=== PATIENT | male | born 1965 | race Caucasian/White ===

== ENCOUNTER 2018-03-21 14:11 | Inpatient (IN) | payer BC ==
[~2018-03-21] VITALS: Ht 188 cm; Wt 117.9 kg
[~2018-03-21 14:11] MED LIST: ASPIRIN325 PO; ASTAXANTHIN4 MG PO; B-100 COMPLEX100 MG PO; CALCIUM 600 +1 EAC1 PO; CAYENNE450 MG PO; FISH OIL 1,2001 EAC4 PO; GARLIC1 EACH PO; GLUCOSAMINE &1 EAC1 PO; GREEN TEA-70500 MG PO; L-LYSINE500 M1 PO; MACA ROOT; MAGNESIUM400 MG PO; MOBIC15 MG PO; MULTI-VITAMIN1 EAC5 PO; OXYCODONE HCL 55 MG PO; VITAMIN C + RO500 MG PO; VITAMIN D35000 UNI1 PO; XARELTO10 MG PO; ZOFRAN ODT4 MG PO; [UNRECOGNIZED DRUG - OTHER] PO; [UNRECOGNIZED DRUG - OTHER] PO
[2018-03-21 14:17] VITALS: BP 145/53
[2018-03-21] MEDS ORDERED: BACTRIM DS TAB1 EACH PO (14:21)
[2018-03-21 15:02] LABS: HEMOGLOBIN 14.1 gm/dL (14.0-18.0); MCH 31.6 pg (26.0-34.0); MCHC 34.4 g/dL (28.0-37.0); MCV 91.9 fL (80.0-100.0); MPV 9.2 fl. (7.2-11.1); NUCLEATED RBCS 0 /100WBC; PLATELET COUNT* 170 thou/uL (150-400); RBC 4.46 mil/uL (4.50-6.00); RDW-CV 13.2 % (10.5-14.5); WBC 9.3 thou/uL (4.0-11.0)
[2018-03-21 15:10] LABS: CALCIUM 8.4 mg/dL (8.5-10.1); CREATININE 1.3 mg/dL (0.6-1.3); POTASSIUM 3.6 mmol/L (3.5-5.1)
[2018-03-21 15:15] LABS: ABSOLUTE LYMPHOCYTES 0.3 thou/uL (0.8-5.3); ABSOLUTE MONOCYTES 0.3 thou/uL (0.0-1.2); ABSOLUTE NEUTROPHILS 8.7 thou/uL (1.6-8.1); ALBUMIN 3.5 g/dL (3.4-5.0); PLATELET ESTIMATE ADEQUATE; TOTAL BILIRUBIN 0.9 mg/dL (<0.1-1.0); TOTAL PROTEIN 7.4 g/dL (6.4-8.2); URIC ACID* 3.6 mg/dL (2.6-7.2)
[2018-03-21 16:13] LABS: ESR (SEDRATE) 53 mm/hr (0-20)
[2018-03-21 16:22] VITALS: BP 126/66
[2018-03-21 16:45] VITALS: BP 134/67
[2018-03-21] MEDS ORDERED: FLOMAX0.4 MG PO (17:42)
[2018-03-21] MEDS ORDERED: MOBIC15 MG PO (17:43)
--- NOTE | 2018-03-21 17:58 | NUR ---
PT ADMITTED WITH CELLULITIS OF THE LEFT ARM AND AN OPEN WOUND ON THE LEFT ELBOW. NO DRESSING OVER WOUND AND PICTURES TAKEN. PT STATED PAIN AND REDNESS STARTED AROUND 4-7 DAYS AGO. PT PRIOR HAD BEEN ON BACTRIM FOR THE CELLULITIS BUT IT DID NOT HELP. PT IS ON RA. IV IN THE RIGHT FOREARM WITH VANC RUNNING AND NS AT 90ML/HR ORDERED. CONSULT FOR INFECTIOUS DISEASE MADE AND LEFT MESSAGE. PT IS UP WITH ASSIST. PT HAS AN MRSA SWAB ORDERED AND PENDING RESULTS.
--- NOTE | 2018-03-21 18:04 | NUR ---
NURSING DOCUMENTATION BY KIMMIE Jackson RN REVIEWED
[2018-03-21 20:00] VITALS: BP 131/47
--- NOTE | 2018-03-22 04:41 | NUR ---
PATIENT HAS REMAINED ALERT AND ORIENTED X 4 THROUGHOUT THE SHIFT AND RESTING AT INTERVALS ON HOURLY ROUNDS. IVF'S AND ANTIBIOTICS PER ORDERS. LEFT ELBOW UNCHANGED WITH REDNESS AND EDEMA. PATIENT REPORTS CONTINUED PAIN BUT DECLINES PAIN MEDICATIONS. LOW-GRADE TEMP. INFECTIOUS DISEASE TO SEE THIS AM. CONTINUE TO MONITOR.
[2018-03-22 05:08] LABS: HEMATOCRIT 37.7 % (42.0-52.0); HEMOGLOBIN 12.8 gm/dL (14.0-18.0); MCH 31.5 pg (26.0-34.0); MCHC 33.9 g/dL (28.0-37.0); MCV 93.1 fL (80.0-100.0); MPV 10.1 fl. (7.2-11.1); RBC 4.05 mil/uL (4.50-6.00); RDW-CV 13.3 % (10.5-14.5); WBC 8.8 thou/uL (4.0-11.0)
[2018-03-22 05:13] LABS: CALCIUM 7.8 mg/dL (8.5-10.1); CREATININE 1.2 mg/dL (0.6-1.3); MAGNESIUM 1.8 mg/dL (1.8-2.4); POTASSIUM 4.1 mmol/L (3.5-5.1)
--- NOTE | 2018-03-22 06:47 | NUR ---
0525 PATIENT REQUESTING THAT ORTHO BEING CONSULTED TO BE DR. BROWN.
--- NOTE | 2018-03-22 07:04 | NUR ---
DR. BROWN UNABLE TO SEE INPATIENT CONSULTS AT THIS TIME. WILL NOTIFY PATIENT AND PLAN FOR ANOTHER CHOICE.
--- NOTE | 2018-03-22 07:25 | NUR ---
PATIENT AGREEABLE TO CONSULT WITH DR. MARTINEZ. CONSULT CALLED TO ANSWERING SERVICE.
[2018-03-22 08:50] VITALS: BP 134/74
--- NOTE | 2018-03-22 11:36 | NUR ---
SPOKE WITH DR. BROWN THIS AM REGARDING ORTHO CONSULT AND PATIENTS REQUEST TO SEE A DIFFERENT ORTHO GROUP (PT DOES NOT WANT TO SEE [facility]). DR. BROWN IS NOT IN TOWN THIS WEEKEND TO DO CONSULT. SPOKE WITH DR. HU AND DR. HU SAID THE CONSULT CAN BE DONE FRIDAY UNLESS SOMETHING URGENT ARISES. PATIENT WILL GO FOR STAT MRI TODAY OF LEFT ELBOW.
[2018-03-22 11:52] VITALS: BP 127/76
--- NOTE | 2018-03-22 13:36 | NUR ---
PATIENT'S REQUESTING TRANSFER TO [facility] IF SURGICAL INTERVENTION IS REQUIRED. AWAITING MRI RESULTS.
--- NOTE | 2018-03-22 13:43 | NUR ---
DR. HU MADE AWARE OF WIFES REQUEST TO TRANSFER IF SURGICAL INTERVENTION NEEDED.
[2018-03-22 15:34] VITALS: BP 133/77
--- NOTE | 2018-03-22 16:02 | NUR ---
MRI RESULTS CALLED TO DR HU. DR. HU STATES PATIENT NEEDS ORTHO CONSULT. PATIENT AND SPOUSE WISH TO TRANSFER. AWAITING APPROVAL FOR TRANSFER TO [facility] PER PATIENT REQUEST.
--- NOTE | 2018-03-22 16:42 | NUR ---
PATIENT REMAINS ALERT AND ORIENTED. TOLERATING MEALS. IV ABX INFUSED ORDERED. MRI OF LEFT ELBOW. NEEDS SURGICAL INTERVENTION-AWAITING TRANSFER TO DIFF FACILITY DUE TO ORTHO PREFERENCE. LEFT ARM ELEVATED ON PILLOW, INCREASE IN PAIN TODAY AFTER MRI-MORPHINE AND NORCO ADMINISTERED. UP AD YESSENIA. FAMILY AT BEDSIDE. CALL LIGHT WITHIN REACH. WILL CONTINUE TO MONITOR.
--- NOTE | 2018-03-22 19:03 | NUR ---
PENDING SALE TO [facility] PATIENT IS OUT OF NETWORK. PER TRANSFER TEAM [facility] SHOULD BE IN NETWORK (EXCEPT [facility]). OFFERED PATIENT [facility] WHERE [facility] JESSICA IS CAN RUNNER, (PT SEES [facility] OUTPATIENT) OR [facility] WHERE VEENA IS CAN RUNNER. PATIENT CHOOSES [facility]. AWAITING APPROVAL FOR TRANSFER.
[2018-03-22 20:00] VITALS: BP 136/71
--- NOTE | 2018-03-22 21:50 | NUR ---
PT APPROVED TO BE A DIRECT ADMIT AT [facility]. REPORT GIVEN TO MOOKIE ARTEAGA. DR BRUCE AND BURNER MACHINE OPERATOR NOTIFIED AND PAPERWORK FOR TRANSFER RECEIVED FROM BURNER MACHINE OPERATOR AND COMPLETED; COPY PLACED ON CHART. PT'S IV REMOVED [facility] WOULD NOT ACCEPT A PATIENT WITH AN IV IF NOT ARRIVING BY AMBULANCE. PT IN AGREEMENT TO HAVE IV REMOVED. COPIES OF RECORDS AND TRANSFER PAPERWORK GIVEN TO PATIENT AND PT LEFT WITH AT 2135 BY PERSONAL AUTO. PT INSTRUCTED TO GO DIRECTLY TO [facility]. VITALS WNL DOCUMENTED.
--- NOTE | 2018-03-23 10:55 | CON ---
[address] [address] CONSULTATION Name: AMADOTUNDE Haris Room: [address] IN M.R.#: [id number] Admission: 03/21/18 Attend Phys: Praveen Gordon, Discharge: 03/22/18 Date of : 61 Report #: [id number] THIS REPORT FOR: //name// CC: Festus Gordon DATE OF SERVICE: 03/22/2018 ATTENDING PHYSICIAN: Praveen Gordon MD REASON FOR CONSULTATION: Left olecranon bursitis. HISTORY OF PRESENT ILLNESS: The patient is a 52-year-old white man who developed left arm elbow pain, treated with Bactrim, which he took 6 doses and did not improve, and is admitted with persistent swelling, left arm, elbow and forearm. No systemic symptoms. No history of trauma. PAST MEDICAL HISTORY: Rotator cuff surgery, left shoulder; right total hip replacement. DRUG ALLERGIES: PENICILLINS. MEDICATIONS: The patient is on vancomycin 1 gram IV 2 times daily and Rocephin 1 gram twice daily, enoxaparin, meloxicam, tamsulosin, ondansetron p.r.n., morphine sulfate p.r.n., fish oil, multivitamins, magnesium oxide. SOCIAL HISTORY: , worked for [employer], has 3 children, many grandchildren. No tobacco. No alcohol. FAMILY HISTORY: See H and P, old records. REVIEW OF SYSTEMS: Noncontributory besides left elbow pain. PHYSICAL EXAMINATION: GENERAL: A well-developed man, not toxic looking. VITAL SIGNS: Temperature 99.4, pulse 69, respirations 18, BP 131/47. HEENMT: Within range. NECK: Supple, no thyromegaly. Lymphoglandular negative. LUNGS: Clear to auscultation. HEART: S1, S2. No gallops or murmur. ABDOMEN: Soft, no masses or megaly. GENITAL AND RECTAL: Deferred. EXTREMITIES: Reveal typical findings of left olecranon bursitis. There might be some fluid in the left olecranon bursa. There is swelling of the left forearm and some of the left arm. Redness of the left upper extremity. NEUROLOGIC: Grossly [place] [address] CONSULTATION Name: TUNDE FISCHER Haris Room: [address]#: [id number] Admission: 03/21/18 Attend Phys: Praveen Gordon, Discharge: 03/22/18 Date of : 61 Report #: [id number] LABORATORY DATA: Sodium 134, potassium 3.6, BUN 15, creatinine 1.3, glucose 106. WBC 9300, hemoglobin 14.1 g/dL, platelets 170,000. Sedimentation rate 53 mm per hour. C-reactive protein 152.1 mg per liter. MICROBIOLOGY DATA: Blood cultures were obtained; they remain negative at the time of this dictation. RADIOLOGY EVALUATION: Elbow x-rays reveal subcutaneous soft tissue swelling and stranding. ASSESSMENT: 1. Left olecranon bursitis. 2. History of left rotator cuff surgery and question right total hip replacement. SUGGESTIONS: Continue vancomycin to be managed by pharmacy. Continue Rocephin, changed to 1 g IV daily. Obtain orthopedic consultation for possibility of drainage of left olecranon bursa. Dr. Gordon, thank you for requesting my suggestions. <ELECTRONICALLY SIGNED> By: Meir Pérez MD 03/23/18 1055 0522 [id number] Pérez MD /nt
== END 2018-03-22 21:35 | disposition short-term general hospital (02) | DRG 549 ==
LOC: M.ERS 14:11 → M.TBA-ER 15:49 → M.ORTHSURG 15:49
PROVIDERS: Nurse Practitioner Family; ADMIT Family Medicine
DX: M00.9 Pyogenic arthritis, unspecified (principal); L03.114 Cellulitis of left upper limb; L02.414 Cutaneous abscess of left upper limb; Z96.641 Presence of right artificial hip joint; M70.22 Olecranon bursitis, left elbow; E66.9 Obesity, unspecified; M25.422 Effusion, left elbow; Z88.0 Allergy status to penicillin; Z83.49 Family history of other endocrine, nutritional and metabolic diseases; Z79.899 Other long term (current) drug therapy; Z68.33 Body mass index [BMI] 33.0-33.9, adult